=== PATIENT | female | born 1975 | race Caucasian/White ===

== ENCOUNTER 2017-01-12 20:40 | Emergency (ER) | payer OTHER ==
[~2017-01-12] VITALS: Ht 157.5 cm; Wt 70.8 kg
[~2017-01-12 20:40] MED LIST: AUGMENTIN 875-1 EACH PO; PREDNISONE50 M1 PO; VENTOLIN HFA18 GM INH
--- NOTE | 2017-01-12 21:08 | ED GENERAL ADULT ---
History of Present Illness General Chief Complaint: Wheezing/Asthma Stated Complaint: "CANT BREATHE, ASTHMA" PER PT SPO2 94% AT [facility] Source: patient Exam Limitations: no limitations Vital Signs & Intake/Output Vital Signs & Intake/Output Vital Signs Date Time Temp Pulse Resp B/P Pulse O2 O2 Flow FiO2 Ox Delivery Rate 01/12 2315 98.2 115 18 123/84 96 01/12 2203 94 01/12 2105 96.4 120 20 120/85 95 Room Air ED Intake and Output 01/13 0000 01/12 1200 Intake Total 30 Output Total Balance 30 Intake, Oral 30 Patient 156 lb Weight Allergies Coded Allergies: No Known Allergies (05/01/16) Reconcile Medications Amoxicillin 500 MG TABLET 1 TAB PO BID BRONCHITIS Prednisone 20 MG TABLET 2 TAB PO DAILY ASTHMA Triage Note: RECEIVED 41 YO FEMALE WITH HX OF ASTHMA C/O WHEEZING AND DIFFICULTY BREATHING SINCE YESTERDAY. WHEEZING AUSCULTATED BILATERALLY. O2 SATS 95% Triage Nurses Notes Reviewed? yes Onset: Abrupt Duration: hour(s): Timing: recent history HPI: 01/12/17 41-year-old female presents to the emergency department for cough productive of brown sputum and difficulty breathing. She does say that she has a history of asthmatic bronchitis that developed later on in life. The onset of the symptoms were abrupt, the duration has been approximately the last several days, the severity is significant as her symptoms required her to come to the emergency department. She is not on oral contraceptives. She denies any chest pain. On physical exam she does have bilateral expiratory wheezes. She does smoke Past History Travel History Traveled to [place] past 21 day No Medical History Any Pertinent Medical History? see below for history Neurological: NONE EENT: NONE Cardiovascular: NONE Respiratory: NONE Gastrointestinal: NONE Hepatic: NONE Renal: NONE Musculoskeletal: NONE Psychiatric: NONE Endocrine: NONE Surgical History Surgical History: N Psychosocial History What is your primary language Swazi Family History Hx Contributory? No Review of Systems Review of Systems Constitutional: Denies: fever. EENTM: Denies: visual changes. Respiratory: Reports: cough, short of breath, sputum production, wheezing. Cardiovascular: Denies: chest pain. GI: Denies: abdominal pain. Genitourinary: Reports: no symptoms. Musculoskeletal: Reports: no symptoms. Skin: Reports: no symptoms. Neurological/Psychological: Reports: no symptoms. Hematologic/Endocrine: Reports: no symptoms. Immunologic/Allergic: Reports: no symptoms. Physical Exam Physical Exam General Appearance: alert, awake, anxious, moderate distress Head: atraumatic, normal appearance Eyes: Bilateral: normal appearance, PERRL, EOMI. Ears, Nose, Throat: normal pharynx, normal ENT inspection Neck: normal inspection, supple, full range of motion Respiratory: chest non-tender, wheezing Cardiovascular: regular rate/rhythm Peripheral Pulses: 4+ radial (R), 4+ radial (L) Gastrointestinal: soft, non-tender Back: normal range of motion Extremities: no edema Neurologic/Psych: no motor/sensory deficits, awake, alert, oriented x 3, normal gait Skin: intact, normal color, warm/dry Core Measures ACS in differential dx? No CVA/TIA Diagnosis: No Severe Sepsis Present: No Septic Shock Present: No Progress Differential Diagnoses I considered the following diagnoses in my evaluation of the patient: [Asthma, bronchitis, pneumonia, pulmonary embolism] Plan of Care: Current Medications Sig/Nirmal Start time Last Medication Dose Stop Time Status Admin Amoxicillin 500 MG ONCE ONE 01/12 2300 UNVr (Amoxil) 01/12 2301 Initial ED EKG: none Departure Departure Disposition: HOME OR SELF CARE Condition: Stable Clinical Impression Primary Impression: Asthma Secondary Impressions: Bronchitis Referrals: PATIENT HAS NO PRIMARY CARE DR (PCP/Family) Departure Forms: Customer Survey General Discharge Information Prescriptions: Current Visit Scripts Amoxicillin 1 TAB PO BID #20 TAB Prednisone 2 TAB PO DAILY #10 TAB Comments 01/12/17 10:50 PM The patient feels much improved. Lungs are clear now. She was discharged on Proventil, prednisone and amoxicillin. She will follow-up with [facility] in the next 72 hours or return to the emergency department if worse Critical Care Note Critical Care Note Critical Care Time: 30-74 min
[2017-01-12] MEDS ORDERED: AMOXICILLIN500 M3 PO (22:55)
[2017-01-12] MEDS ORDERED: PREDNISONE20 M1 PO (22:56)
[2017-01-12 23:15] VITALS: BP 123/84
== END 2017-01-12 23:16 ==
LOC: ERH 20:40
DX: J45.909 Unspecified asthma, uncomplicated (principal)
CPT/HCPCS: 1263; J3490

== ENCOUNTER 2017-03-05 11:34 | Emergency (ER) | payer OTHER ==
[~2017-03-05] VITALS: Ht 154.9 cm; Wt 72.6 kg
[~2017-03-05 11:34] MED LIST changes: +AMOXICILLIN500 M3 PO; +PREDNISONE20 M1 PO
[2017-03-05 11:43] VITALS: BP 111/77
--- NOTE | 2017-03-05 11:50 | ED INFLUENZA/URI COMPLAINT ---
History of Present Illness General Chief Complaint: Fever Stated Complaint: FEVER Source: patient, old records Exam Limitations: no limitations Vital Signs & Intake/Output Vital Signs & Intake/Output Vital Signs Date Time Temp Pulse Resp B/P B/P Pulse O2 O2 Flow FiO2 Mean Ox Delivery Rate 03/05 1208 98 03/05 1143 99.5 101 16 111/77 93 Room Air Allergies Coded Allergies: No Known Allergies (05/01/16) Reconcile Medications Albuterol Sulfate (Proair Hfa) 90 MCG HFA.AER.AD 2 PUF INH Q4-6 PRN PRN BRONCHITIS Amoxicillin 500 MG TABLET 1 TAB PO TID BRONCHITIS Triage Note: PT STATES SHE HAD A COLD LAST WEEKEND AND THEN ON TUESDAY SHE DEVELOPED "A RAW COUGH" WITH YELLOW/BROWN SPUTUM. PT STATES SHE DID HVAE A FEVER AND TOOK TYLENOL ABOUT 1 HOUR AGO. AND Triage Nurses Notes Reviewed? yes : No Patient currently breastfeeds: No HPI: Patient presents with fevers and chills and myalgias since yesterday. Productive cough with brown sputum. Patient is a smoker. Patient states that she gets a sharp pain in her chest when she coughs. There is no pain when she is not coughing. There is no shortness of breath or orthopnea. Positive wheezing. Similar symptoms in the past which has had bronchitis. Past History Travel History Traveled to [place] past 21 day No Medical History Any Pertinent Medical History? see below for history Neurological: NONE EENT: NONE Cardiovascular: NONE Respiratory: asthma Gastrointestinal: NONE Hepatic: NONE Renal: NONE Musculoskeletal: NONE Psychiatric: NONE Endocrine: NONE Blood Disorders: NONE Cancer(s): NONE Surgical History Surgical History: non-contributory, N Psychosocial History What is your primary language Divehi Tobacco Use: Current Daily Use Daily Tobacco Use Amount/Type: => 5 Cigarettes daily ETOH Use: occasional use Illicit Drug Use: denies illicit drug use Family History Hx Contributory? No Review of Systems Review of Systems Constitutional: Reports: see HPI, chills, fever. EENTM: Reports: no symptoms. Respiratory: Reports: see HPI, cough, short of breath, wheezing. Cardiovascular: Reports: no symptoms. GI: Reports: no symptoms. Genitourinary: Reports: no symptoms. Musculoskeletal: Reports: no symptoms. Skin: Reports: no symptoms. Neurological/Psychological: Reports: no symptoms. Hematologic/Endocrine: Reports: no symptoms. Immunologic/Allergic: Reports: no symptoms. All Other Systems: Reviewed and Negative Physical Exam Physical Exam General Appearance: well developed/nourished, alert, awake Head: atraumatic Eyes: Bilateral: PERRL, EOMI. Ears, Nose, Throat: normal ENT inspection, moist mucous membrane, hearing grossly normal Neck: normal inspection, supple, full range of motion Respiratory: decreased breath sounds, rhonchi, wheezing Cardiovascular: regular rate/rhythm, normal peripheral pulses Gastrointestinal: normal bowel sounds, soft, non-tender Extremities: normal inspection, normal capillary refill, normal range of motion, no edema Neurologic/Psych: no motor/sensory deficits, awake, alert, oriented x 3, normal gait, normal mood/affect Skin: intact, normal color, warm/dry Lymphatic: no anterior cervical wing Core Measures Severe Sepsis Present: No Septic Shock Present: No Progress Differential Diagnosis: influenza, pneumonia, BRONCHITIS Plan of Care: Orders Procedure Date/time Status RAPID VIRAL INFLUENZA A 03/05 1148 Complete Microbiology 03/05 1156 NASOPHARYN: Influenza Virus A & B Rapid Smear - COMP Initial ED EKG: none Comments: PT DOES NOT WANT A CXR SINCE SHE NEEDS TO PAY FOR IT AND SHE STATES THAT SHE HAS HAD THIS IN THE PAST AND ABX AND INHALERS HAVE HELPED. MUCH BETTER AIR ENTRY POST ALB NEB Departure Departure Disposition: HOME OR SELF CARE Condition: Stable Clinical Impression Primary Impression: Bronchitis Referrals: PATIENT HAS NO PRIMARY CARE DR (PCP/Family) Additional Instructions: DRINK PLENTY OF FLUIDS RETURN IF SYMPTOMS WORSEN OR FOR ANY CONCERNS Departure Forms: Customer Survey General Discharge Information Prescriptions: Current Visit Scripts Amoxicillin 1 TAB PO TID #21 TAB Albuterol Sulfate (Proair Hfa) 2 PUF INH Q4-6 PRN PRN BRONCHITIS #1 INHAL
[2017-03-05] MEDS ORDERED: AMOXICILLIN500 M3 PO (11:57)
[2017-03-05] MEDS ORDERED: PROAIR HFA8.5 GM INH (11:57)
== END 2017-03-05 12:35 ==
LOC: ERH 11:34
DX: J40 Bronchitis, not specified as acute or chronic (principal); Z72.0 Tobacco use
CPT/HCPCS: 1263; 87804; 87804-59

== ENCOUNTER 2017-03-17 20:36 | Emergency (ER) | payer OTHER ==
[~2017-03-17] VITALS: Ht 154.9 cm; Wt 72.6 kg
[~2017-03-17 20:36] MED LIST changes: +PROAIR HFA8.5 GM INH
[2017-03-17 20:52] VITALS: BP 175/76
--- NOTE | 2017-03-17 23:03 | ED DYSPNEA/ASTHMA COMPLAINT ---
History of Present Illness General Chief Complaint: Dyspnea (COPD, CHF, Other) Stated Complaint: DIFF BREATHING Source: patient, old records Exam Limitations: no limitations Vital Signs & Intake/Output Vital Signs & Intake/Output Vital Signs Date Time Temp Pulse Resp B/P B/P Pulse O2 O2 Flow FiO2 Mean Ox Delivery Rate 03/17 2149 99 Room Air 03/17 2052 98.1 102 20 175/76 99 Room Air ED Intake and Output 03/18 0000 03/17 1200 Intake Total Output Total Balance Patient 160 lb Weight Allergies Coded Allergies: No Known Allergies (05/01/16) Reconcile Medications Albuterol Sulfate (Proair Hfa) 90 MCG HFA.AER.AD 2 PUF INH Q4-6 PRN PRN BRONCHITIS Albuterol Sulfate (Proventil Hfa) 90 MCG HFA.AER.AD 2 PUF INH Q4 PRN cough, sob Amoxicillin 500 MG TABLET 1 TAB PO TID BRONCHITIS Prednisone 20 MG TABLET 1 TAB PO BID bronchospasm Sulfamethoxazole/Trimethoprim (Bactrim Ds Tablet) 800 MG-160 MG TABLET 1 TAB PO BID sinusitis Core Measure Meds Pre-Hospital antibiotics Triage Note: PT TO ED C/O CONTINUED DIFF BREATHING S/P DX WITH BRONCHITIS ON 03/05. FINISHED AMOX. IS STILL USING ALBUTEROL INHALER. O2 SAT 99% ON RA. PT TALKING NON STOP IN TRIAGE. STATES COUGH IS MORE PRODUCTIVE. SPUTUM COLOR RANGES CLEAR TO GREEN SMOKES DAILY Triage Nurses Notes Reviewed? yes Onset: 2 weeks Duration: week(s):, constant, continues in ED Timing: recent history Severity: moderate Activities at Onset: none Prior Episodes/Possible Cause: illness exposure Modifying Factors: Improves With: rest. Worsens With: movement. Associated Symptoms: cough, weakness LMP (ages 10-50): post menopausal : No Patient currently breastfeeds: No HPI: 2 weeks prior to admission patient complains of nasal congestion sinus pressure nonproductive cough wheezing. She was seen and prescribed albuterol and amoxicillin. She presents with continued symptoms. She declines chest x-ray and treatment. She denies fever chills nausea vomiting diarrhea abdominal pain chest pain headache dysuria rash bleeding. Past History Travel History Traveled to [place] past 21 day No Medical History Any Pertinent Medical History? see below for history Neurological: NONE EENT: NONE Cardiovascular: NONE Respiratory: bronchitis Gastrointestinal: NONE Hepatic: NONE Renal: NONE Musculoskeletal: NONE Psychiatric: NONE Endocrine: NONE Blood Disorders: NONE Cancer(s): NONE Surgical History Surgical History: non-contributory, N Psychosocial History What is your primary language [place] Tobacco Use: Current Daily Use Daily Tobacco Use Amount/Type: => 5 Cigarettes daily ETOH Use: occasional use Illicit Drug Use: denies illicit drug use Family History Hx Contributory? No Review of Systems Review of Systems Constitutional: Reports: no symptoms. EENTM: Reports: see HPI, nasal congestion. Respiratory: Reports: see HPI, cough, wheezing. Cardiovascular: Reports: no symptoms. GI: Reports: no symptoms. Genitourinary: Reports: no symptoms. Musculoskeletal: Reports: no symptoms. Skin: Reports: no symptoms. Neurological/Psychological: Reports: no symptoms. Hematologic/Endocrine: Reports: no symptoms. Immunologic/Allergic: Reports: no symptoms. All Other Systems: Reviewed and Negative Physical Exam Physical Exam General Appearance: well developed/nourished, alert, awake, anxious, mild distress, obese Head: atraumatic, normal appearance, tenderness (maxillary sinus) Eyes: Bilateral: normal appearance, PERRL, EOMI. Ears, Nose, Throat: normal pharynx, normal ENT inspection Neck: normal inspection, supple, full range of motion, no midline tenderness Respiratory: normal breath sounds, chest non-tender, no respiratory distress, quiet respiration Cardiovascular: regular rate/rhythm, normal peripheral pulses, norml femoral pulses equa Peripheral Pulses: 4+ carotid (R), 4+ carotid (L) Gastrointestinal: normal bowel sounds, soft, non-tender, pulsatile mass Extremities: normal inspection, normal capillary refill, normal range of motion, no edema Neurologic/Psych: no motor/sensory deficits, awake, alert, oriented x 3, normal gait, normal mood/affect Skin: intact, normal color, warm/dry Lymphatic: no anterior cervical wing Core Measures ACS in differential dx? No Severe Sepsis Present: No Septic Shock Present: No Progress Differential Diagnosis: asthma, bronchitis, COPD, pneumonia Plan of Care: Current Medications Sig/Nirmal Start time Last Medication Dose Stop Time Status Admin Oxymetazoline HCl 2 SPRAY ONCE ONE 03/17 2315 UNVr (Afrin) 03/17 2316 Initial ED EKG: none Departure Departure Time of Disposition: 2303 Disposition: HOME OR SELF CARE Condition: Stable Clinical Impression Primary Impression: Sinusitis Qualifiers: Sinusitis location: unspecified location Chronicity: unspecified Qualified Code: J32.9 - Chronic sinusitis, unspecified Secondary Impressions: Bronchospasm with bronchitis, acute Referrals: PATIENT HAS NO PRIMARY CARE DR (PCP/Family) Departure Forms: Customer Survey General Discharge Information RELEASE- WORK Prescriptions: Current Visit Scripts Sulfamethoxazole/Trimethoprim (Bactrim Ds Tablet) 1 TAB PO BID #42 TAB Albuterol Sulfate (Proventil Hfa) 2 PUF INH Q4 PRN cough, sob #1 INHAL Prednisone 1 TAB PO BID #10 TAB Critical Care Note Critical Care Note Critical Care Time: non-applicable
[2017-03-17] MEDS ORDERED: PREDNISONE20 M1 PO (23:07)
[2017-03-17] MEDS ORDERED: BACTRIM DS TAB1 EACH PO (23:07)
[2017-03-17] MEDS ORDERED: PROVENTIL HFA6.7 GM INH (23:07)
== END 2017-03-17 23:23 ==
LOC: ERH 20:36
DX: J32.9 Chronic sinusitis, unspecified (principal); J20.9 Acute bronchitis, unspecified

== ENCOUNTER 2017-12-24 05:14 | Emergency (ER) | payer OTHER ==
[~2017-12-24] VITALS: Ht 154.9 cm; Wt 74.8 kg
[~2017-12-24 05:14] MED LIST changes: +BACTRIM DS TAB1 EACH PO; +DOXYCYCLINE HY100 M4 PO; +FLOVENT HFA12 G1 INH; +MEDROL4 M2 PO; +PROVENTIL HFA6.7 GM INH
[2017-12-24 05:32] VITALS: BP 114/82
--- NOTE | 2017-12-24 05:59 | ED DYSPNEA/ASTHMA COMPLAINT ---
History of Present Illness General Chief Complaint: Foot or Ankle Injury Stated Complaint: DIFF BREATHING ALSO C/O RT ANKLE PAIN Source: patient, old records Exam Limitations: no limitations Vital Signs & Intake/Output Vital Signs & Intake/Output Vital Signs Date Time Temp Pulse Resp B/P B/P Pulse O2 O2 Flow FiO2 Mean Ox Delivery Rate 12/24 0618 97 12/24 0532 98.2 91 18 114/82 93 Room Air Allergies Coded Allergies: No Known Allergies (05/01/16) Reconcile Medications Albuterol Sulfate (Proair Hfa) 90 MCG HFA.AER.AD 2 PUF INH Q4-6 PRN PRN DYSPNEA Ibuprofen 600 MG TABLET 1 TAB PO TID PRN PAIN with food Prednisone 20 MG TABLET 2 TAB PO D BRONCHITIS Triage Note: PT FROM HOME C/O DIFFICULTY BREATHING AND RIGHT ANKLE PAIN. PT STATES " SO I DID LAUNDRY LAST NIGHT AND THREW IT DOWN THE STAIRS, THEN TRIPPED OVER IT AND ROLLED MY RIGHT ANKLE, I TOOK 800MG ADVIL AND ICED IT, NOTHING HELPED. THEN I WAS IN BED AND DECIDED I COULDNT REALLY BREATHE, IM SURE I NEED AN INHALER OR STEROID OR SOMETHING, I HAVE AN INHALER AT HOME BUT DONT KNOW WHY", PTS RA 02 93%, PT SPEAKING FULL SENTENCES, NO DISTRESS NOTED. PT DECLINING MOTRIN OR ICE PACK IN TRIAGE. Triage Nurses Notes Reviewed? yes Onset: Abrupt Duration: day(s): (1) Timing: recent history Severity: moderate, severe Associated Symptoms: cough, SOB, RIGHT ANKLE SWELLING : No Patient currently breastfeeds: No HPI: This is a 42-year-old female who presents to the ER for 2 complaints. First complaint is that she tripped and sprained her right ankle yesterday while going downstairs to do laundry. She thinks she missed a step and inverted her foot. She took some ibuprofen with minimal relief last night. She woke up this morning was painful and swollen on the right lateral aspect. In addition she woke up this morning feeling short of breath. Patient without any formal diagnosis of asthma. Usually about 2-3 times a year she gets short of breath using the inhaler takes a course of prednisone and feels much better. She is an active smoker. Denies any fever or chills or chest pain. Denies any recent sick contacts. Past History Travel History Traveled to [place] past 21 day No Medical History Any Pertinent Medical History? see below for history Neurological: NONE EENT: NONE Cardiovascular: NONE Respiratory: bronchitis Gastrointestinal: NONE Hepatic: NONE Renal: NONE Musculoskeletal: NONE Psychiatric: NONE Endocrine: NONE Blood Disorders: NONE Cancer(s): NONE Surgical History Surgical History: non-contributory, N Psychosocial History What is your primary language Uruguayan Tobacco Use: Current Daily Use Daily Tobacco Use Amount/Type: => 5 Cigarettes daily Family History Hx Contributory? No Review of Systems Review of Systems Constitutional: Denies: chills, fever. EENTM: Reports: no symptoms. Respiratory: Reports: cough, short of breath. Denies: sputum production. Cardiovascular: Denies: chest pain, palpitations, peripheral edema. GI: Reports: no symptoms. Genitourinary: Reports: no symptoms. Musculoskeletal: Reports: joint pain, joint swelling. Skin: Reports: no symptoms. Neurological/Psychological: Reports: no symptoms. Hematologic/Endocrine: Denies: bruising, bleeding. Immunologic/Allergic: Reports: no symptoms. All Other Systems: Reviewed and Negative Physical Exam Physical Exam General Appearance: well developed/nourished, alert, awake, anxious, mild distress Head: atraumatic, normal appearance Eyes: Bilateral: normal appearance, PERRL, EOMI. Ears, Nose, Throat: normal pharynx, normal ENT inspection, hearing grossly normal Neck: normal inspection, supple, full range of motion Respiratory: decreased breath sounds Cardiovascular: regular rate/rhythm Peripheral Pulses: 2+ radial (R), 2+ radial (L), 2+ dorsalis pedis (R), 2+ dorsalis pedis (L) Gastrointestinal: soft, non-tender Extremities: RIGHT ANKLE SWOLLEN, BRUISED, RIGHT LATERAL MALLEOLUS TENDERNESS Neurologic/Psych: no motor/sensory deficits, awake, alert, oriented x 3, ANTALGIC GAIT Skin: intact, normal color, warm/dry Core Measures ACS in differential dx? No CVA/TIA Diagnosis No Sepsis Present: No Sepsis Focused Exam Completed? No Progress Differential Diagnosis: asthma, bronchitis, pulmonary embolism, pneumonia, unstable angina, ANKLE SPRAIN, ANKLE FRACTURE, DISTAL FIBULAR FRACTURE, HAWKINS FRACTURE Plan of Care: Orders Procedure Date/time Status RT ED ORDERS 12/24 0558 Active Current Medications Sig/Nirmal Start time Last Medication Dose Stop Time Status Admin Albuterol Sulfate 3 ML ONCE ONE 12/24 599 UNVr 12/24 (Proventil) 12/24 Ibuprofen 800 MG ONCE ONE 12/24 599 UNVr 12/24 (Motrin) 12/24 Ipratropium [place] 2.5 ML ONCE ONE 12/24 599 UNVr 12/24 (Atrovent) 12/24 Prednisone 60 MG ONCE ONE 12/24 599 UNVr 12/24 PATIENT FEELING BETTER AFTER DUONEB. SHE IS REFUSING XRAY, STATES ITS NOT BROKEN AND IF IT IS I DON'T WANT TO KNOW. ADVISED REST, ELEVATION AND ICE AND TO RETURN FOR FURTHER EVALUATION IF NOT GETTING BETTER. Initial ED EKG: none Departure Departure Disposition: HOME OR SELF CARE Condition: Stable Clinical Impression Primary Impression: Bronchitis Secondary Impressions: Right ankle injury Referrals: Zuri BALL,Mitch Caldwell MD,Nicola Zacarias Patient Has No Primary Care Dr (PCP/Family) Additional Instructions: USE THE INHALER AND TAKE THE PREDNISONE DIRECTED PLEASE FOLLOW UP WITH ONE OF THE DOCTORS LISTED RETURN TO THE ER FOR ANY CHANGING OR WORSENING SYMPTOMS Departure Forms: Customer Survey General Discharge Information Prescriptions: Current Visit Scripts Albuterol Sulfate (Proair Hfa) 2 PUF INH Q4-6 PRN PRN DYSPNEA #1 INHAL Prednisone 2 TAB PO D #10 TAB Critical Care Note Critical Care Note Critical Care Time: non-applicable
[2017-12-24] MEDS ORDERED: PROAIR HFA8.5 GM INH (06:09)
[2017-12-24] MEDS ORDERED: PREDNISONE20 M1 PO (06:09)
[2017-12-26] MEDS ORDERED: IBUPROFEN600 M1 PO (08:51)
== END 2017-12-24 06:40 ==
LOC: ERH 05:14
DX: S99.911A Unspecified injury of right ankle, initial encounter (principal); J40 Bronchitis, not specified as acute or chronic; Z72.0 Tobacco use; X50.9XXA Other and unspecified overexertion or strenuous movements or postures, initial encounter; Y93.01 Activity, walking, marching and hiking; Y92.9 Unspecified place or not applicable
CPT/HCPCS: 1263; 1395